=== PATIENT | male | born 1980 | race African-American/Black ===

== ENCOUNTER 2017-08-29 07:40 | Emergency (ER) | payer MEDICAID, OTHER ==
[~2017-08-29] VITALS: Ht 180.3 cm; Wt 72.7 kg
[~2017-08-29 07:40] MED LIST: ACYC200C PO; TRUVT PO
[2017-08-29 08:15] VITALS: BP 143/75
[2017-08-29] MEDS ORDERED: PERTUSS(ACELL),DIPH,TET VAC/PF 0.5 ML VIAL IM ONE (08:30)
== END 2017-08-29 09:02 | disposition home or self-care (01) ==
LOC: EMS 07:48
DX: S51.011A Laceration without foreign body of right elbow, initial encounter (principal); J45.909 Unspecified asthma, uncomplicated; Z23 Encounter for immunization; X99.1XXA Assault by knife, initial encounter; Y93.89 Activity, other specified; Y92.89 Other specified places as the place of occurrence of the external cause; Y99.8 Other external cause status
CPT/HCPCS: 12001; 90471; 90715; 99283

== ENCOUNTER 2024-11-24 05:58 | Emergency (ER) | payer MEDICAID ==
[~2024-11-24] VITALS: Ht 177.8 cm; Wt 85.0 kg
[2024-11-24 06:02] VITALS: TEMP 98.2
[2024-11-24 06:49] VITALS: BP 156/90; PULSE 85; RESP 16; O2SAT 97
[2024-11-24] MEDS ORDERED: GUAIFDM PO (06:53)
[2024-11-24] MEDS ORDERED: CLOT15CR29 TP (06:53)
[2024-11-24] MEDS ORDERED: IBUP-1554 PO (06:53)
[2024-11-24] MEDS ORDERED: CEPH-558 PO (06:53)
[2024-11-24] MEDS ORDERED: ACET-66 PO (06:53)
[2024-11-24] MEDS ORDERED: [UNRECOGNIZED DRUG - CODE] TP (06:53)
[2024-11-24] MEDS: ACETAMINOPHEN 500 MG TABLET PO ONE (07:01)
[2024-11-24] MEDS: IBUPROFEN 600 MG TABLET PO ONE (07:01)
== END 2024-11-24 07:20 | disposition home or self-care (01) ==
LOC: EMS 05:58
DX: B35.0 Tinea barbae and tinea capitis (principal); K14.0 Glossitis; J06.9 Acute upper respiratory infection, unspecified; K13.79 Other lesions of oral mucosa; J45.909 Unspecified asthma, uncomplicated
CPT/HCPCS: 99283

== ENCOUNTER 2025-03-15 12:46 | Emergency (ER) | payer MEDICAID ==
[~2025-03-15] VITALS: Ht 177.8 cm; Wt 77.3 kg
[~2025-03-15 12:46] MED LIST changes: +ACET-66 PO; -ACYC200C PO; +CEPH-558 PO; +CLOT15CR29 TP; +GUAIFDM PO; +IBUP-1554 PO; -TRUVT PO; +[UNRECOGNIZED DRUG - CODE] TP
[2025-03-15 12:54] VITALS: BP 144/94; PULSE 88; RESP 16; TEMP 97.9; O2SAT 100
[2025-03-15] MEDS ORDERED: DARU1TAB3 PO (12:56)
[2025-03-15 13:33] LABS: APPEARANCE,URINE HAZY (CLEAR); BILIRUBIN,URINE NEGATIVE (NEGATIVE); COLOR,URINE LIGHT YELLOW (YELLOW); GLUCOSE, URINE (UA) NEGATIVE (NEGATIVE); KETONES,URINE NEGATIVE (NEGATIVE); LEUKOCYTE ESTERASE ,URINE LARGE (NEGATIVE); NITRATE,URINE NEGATIVE (NEGATIVE); OCCULT BLOOD,URINE NEGATIVE (NEGATIVE); PROTEIN,URINE NEGATIVE (NEGATIVE); SPECIFIC GRAVITIY, URINE 1.012 (1.003-1.030); UROBILINOGEN,URINE <=1.0 mg/dL (<=1.0)
[2025-03-15] MEDS ORDERED: VALA100026 PO (13:44)
[2025-03-15] MEDS ORDERED: MULT-1366 PO (13:44)
[2025-03-15 13:46] LABS: BACTERIA,URINE Moderate /HPF (None Seen); RBC,URINE 0-2 /HPF (0-2); WBC,URINE 51-100 /HPF (0-5)
== END 2025-03-15 16:05 | disposition left against medical advice (07) ==
LOC: EMS 12:46
DX: R36.9 Urethral discharge, unspecified (principal); J45.909 Unspecified asthma, uncomplicated; Z79.624 Long term (current) use of inhibitors of nucleotide synthesis; Z72.89 Other problems related to lifestyle
CPT/HCPCS: 81001; 87086; 87491; 87591; 99283

== ENCOUNTER 2025-03-30 13:34 | Emergency (ER) | payer MEDICAID ==
[~2025-03-30] VITALS: Ht 177.8 cm; Wt 78.2 kg
[~2025-03-30 13:34] MED LIST changes: -CEPH-558 PO; -CLOT15CR29 TP; +DARU1TAB3 PO; -GUAIFDM PO; -IBUP-1554 PO; +MULT-1366 PO; +VALA100026 PO; -[UNRECOGNIZED DRUG - CODE] TP
[2025-03-30 14:07] VITALS: BP 132/98; PULSE 97; RESP 16; TEMP 97.905272; O2SAT 100
[2025-03-30] MEDS ORDERED: CEPH-558 PO (14:09)
[2025-03-30] MEDS ORDERED: DOXY-354 PO (14:09)
[2025-03-30] MEDS: CefTRIAXone SODIUM 1 GM/VIAL IM ONE (14:23)
[2025-03-30] MEDS: LIDOCAINE/PF 1% 2 ML VIAL IM ONE (14:23)
[2025-03-30] MEDS: BACITRACIN ZINC/POLYMYXIN B 14.2 GM OINTMENT TP ONE (14:32)
== END 2025-03-30 14:50 | disposition home or self-care (01) ==
LOC: EMS 13:34
DX: A54.01 Gonococcal cystitis and urethritis, unspecified (principal); T22.212A Burn of second degree of left forearm, initial encounter; J45.909 Unspecified asthma, uncomplicated; Z72.89 Other problems related to lifestyle; Z79.899 Other long term (current) drug therapy
CPT/HCPCS: 99283; 96372; J0696; J3490